=== PATIENT | female | born 1985 ===

== ENCOUNTER 2018-03-03 10:04 | Emergency (ER) | payer OTHER ==
[2018-03-03 10:18] VITALS: TEMP 98.4; O2SAT 99
[2018-03-03] MEDS ORDERED: Sodium Chloride 0.9% 1,000 ML IV ONE (10:31)
[2018-03-03] MEDS ORDERED: Sodium Chloride 0.9% 1,000 ML ONE (10:58)
[2018-03-03 11:02] LABS: BASO # 0.1 K/uL (0.0-0.2); BASO % 0.8 % (0.0-2.0); EOS # 0.2 K/uL (0.0-0.7); EOS % 2.4 % (0.0-4.0); HEMOGLOBIN 13.8 g/dL (11.0-16.0); LYMPH # 1.7 K/uL (1.0-4.3); LYMPH % 23.1 % (20.0-40.0); MEAN CELL VOLUME 86.3 fL (81.0-99.0); MEAN CORPUSCULAR HEMOGLOBIN 30.5 pg (27.0-31.0); MEAN CORPUSCULAR HGB CONC 35.4 g/dL (33.0-37.0); MEAN PLATELET VOLUME 6.9 fL (7.2-11.7); MONO # 0.6 K/uL (0.0-0.8); MONO % 8.2 % (0.0-10.0); NEUT # 4.8 K/uL (1.8-7.0); NEUT % 65.5 % (50.0-75.0); NRBC % 0.1 % (0.0-2.0); RBC 4.52 Mil/uL (3.80-5.20); RED CELL DISTRIBUTION WIDTH 12.9 % (11.5-14.5); WHITE BLOOD COUNT 7.4 K/uL (4.8-10.8)
[2018-03-03 11:08] LABS: HCG,QUALITATIVE URINE POSITIVE (NEGATIVE)
[2018-03-03 11:16] LABS: BLOOD UREA NITROGEN 10 mg/dL (7-17); CALCIUM 9.2 mg/dl (8.6-10.4); GFR NON-AFRICAN AMERICAN > 60
[2018-03-03 11:28] LABS: SQUAMOUS EPITHIAL 5 /hpf (0-5); URINE BACTERIA RARE (<OCC); URINE BILIRUBIN NEGATIVE (NEGATIVE); URINE BLOOD NEGATIVE (NEGATIVE); URINE CLARITY Hazy (Clear); URINE COLOR Amber (YELLOW); URINE GLUCOSE (UA) NORMAL (Normal); URINE LEUKOCYTE ESTERASE TRACE Leu/uL (Negative); URINE PROTEIN 1+ mg/dL (NEGATIVE)
--- NOTE | 2018-03-03 11:35 | C.PDOC ---
History Of Present Illness 33 yo female , LNMP 12/29/17 , no hx of ectopic, comes in for evaluation of epigastric pain, nausea, non-bilious vomiting, decrease appetite developed for past 2 weeks, Pt sts, today developed Right groin pain. Otherwise, pt denies fever, chills, recent illness, CP, SOB, dyspnea, palpitation, hematemesis, diarrhea, back pain, UTI sx, vaginal irritation, denies vaginal bleeding. Ambulate to Ed for evaluation, not in any apparent distress. P{t denies current care. Time Seen by Provider: 03/03/18 10:23 Chief Complaint (Nursing): Abdominal Pain History Per: Patient Past Medical History Reviewed: Historical Data, Nursing Documentation, Vital Signs Vital Signs: Last Vital Signs Temp 98.4 F 03/03/18 10:14 Pulse 88 03/03/18 10:14 Resp 20 03/03/18 10:14 BP 113/78 03/03/18 10:14 Pulse Ox 99 03/03/18 10:14 - Medical History PMH: No Chronic Diseases Family History: States: No Known Family Hx - Social History Hx Tobacco Use: No Hx Alcohol Use: No Hx Substance Use: No - Immunization History Hx Tetanus Toxoid Vaccination: No Hx Influenza Vaccination: No Hx Pneumococcal Vaccination: No Review Of Systems Except As Marked, All Systems Reviewed And Found Negative. Constitutional: Negative for: Fever, Chills ENT: Negative for: Throat Pain Cardiovascular: Negative for: Chest Pain, Palpitations, Edema, Light Headedness Respiratory: Negative for: Cough, Shortness of Breath, Wheezing Gastrointestinal: Positive for: Nausea, Vomiting, Abdominal Pain. Negative for: Diarrhea, Melena, Hematochezia, Hematemesis, Rectal Pain Genitourinary: Negative for: Dysuria, Frequency, Vaginal Discharge, Vaginal Bleeding Musculoskeletal: Negative for: Back Pain Neurological: Negative for: Altered Mental Status, Headache, Dizziness Physical Exam - Physical Exam Appears: Well, Non-toxic, No Acute Distress Skin: Normal Color, Warm, Dry, No Rash Head: Normacephalic Eye(s): bilateral: PERRL Nose: No Flaring Oral Mucosa: Moist Throat: No Erythema, No Drooling Neck: Supple Cardiovascular: Rhythm Regular, No Murmur, No JVD Respiratory: No Decreased Breath Sounds, No Accessory Muscle Use, No Stridor, No Wheezing Gastrointestinal/Abdominal: Soft, Tenderness (mild epigastric), No Distention, No Guarding, No Rebound Back: No CVA Tenderness Extremity: Normal ROM, No Pedal Edema, No Deformity, No Swelling Neurological/Psych: Oriented x3, Normal Speech ED Course And Treatment - Laboratory Results Result Diagrams: 03/03/18 10:55 03/03/18 10:55 Lab Interpretation: No Acute Changes Urine POC: Positive O2 Sat by Pulse Oximetry: 99 Pulse Ox Interpretation: Normal - CT Scan/US Obstetrics US Other Rad Studies (CT/US): Read By Radiologist, Radiology Report Reviewed CT/US Interpretation: Indication: abd. pain, N/V. Comparison: None available. Technique: Real-time transabdominal pelvic ultrasound was performed. In addition a transvaginal pelvic ultrasound was necessary to better depict pelvic anatomy. Findings: Uterus measures approximately 10.7 x 6.5 x 7.7 cm. Anteverted. Cervix length measures approximately 3.3 cm. There is a single intrauterine fetus present. 2 mm yolk sac. The gestational sac measures 3.4 cm and is compatible with a gestational age of 8 weeks 3 days. The crown-rump length measures 2.0 cm and is compatible with a gestational age of 8 weeks 4 days. There is heart motion which measured 119.5 BPM. The right ovary measures 2.1 x 1.3 x 2.1 cm. The left ovary measures 2.6 x 1.5 x 3.0 cm and contains 2.3 x 1.9 x 1.8 cm probable corpus luteal cyst. Blood flow was demonstrated to both ovaries. Impression: Live single intrauterine with estimated gestational age 8 weeks 3 days by gestational sac calculation and 8 weeks 4 days by crown-rump length calculation. heart rate 119.5 bpm. 2.3 cm probable left corpus luteal cyst. Advise an anomaly screen at 16-18 weeks gestational age Progress Note: PT WAS OBS IN ED FOR 3 HOURS AND REMAINED STABLE. Pt reports, " feels better". Pt was able tolerate Po well in ED. On re-evaluation, pt is asymptomatic, afebrile, hemodynamicaly stable. Non-toxic. neck: Supple, (-) JVD. Lungs: CTA B/L, BS equal B/L. CVS: (+)S1S2, reg. Abd: benign, (-) guarding, (-) rebound, (-) localized tenderness. back: (-) CVA tenderness. Blood work review and appears normal. US results (+) Live single intrauterine with estimated gestational age 8 weeks 3 days by gestational sac calculation and 8 weeks 4 days by crown-rump length calculation. heart rate 119.5 bpm. Beta quant review and c/w US findings. Blood type: O positive. results review and discussed with patient. Pt has clinical findings c/w epigastric pain, vomiting, . Ref. to F/u with OB in 2-3 days for re- evaluation. return if any new changes. Disposition Counseled Patient/Family Regarding: Diagnosis, Need For Followup, Rx Given - [facility]position [facility] Disposition: HOME/ ROUTINE Disposition Time: 12:36 Condition: STABLE Additional Instructions: Encourage fluids take medication as need Follow up with OB in 2-3 days for re-evaluation. return if any new changes. Prescriptions: Ondansetron ODT [Zofran ODT] 1 odt PO BID PRN #6 odt PRN Reason: Nausea/Vomiting Instructions: Threatened Miscarriage (DC) Forms: [employer] (Telugu) Print Language: FRENCH - Clinical Impression Clinical Impression: Threatened
--- NOTE | 2018-03-03 12:39 | US ---
Indication: abd. pain, N/V Comparison: None available Technique: Real-time transabdominal pelvic ultrasound was performed. In addition a transvaginal pelvic ultrasound was necessary to better depict pelvic anatomy. Findings: Uterus measures approximately 10.7 x 6.5 x 7.7 cm. Anteverted. Cervix length measures approximately 3.3 cm. There is a single intrauterine fetus present. 2 mm yolk sac. The gestational sac measures 3.4 cm and is compatible with a gestational age of 8 weeks 3 days. The crown-rump length measures 2.0 cm and is compatible with a gestational age of 8 weeks 4 days. There is heart motion which measured 119.5 BPM. The right ovary measures 2.1 x 1.3 x 2.1 cm. The left ovary measures 2.6 x 1.5 x 3.0 cm and contains 2.3 x 1.9 x 1.8 cm probable corpus luteal cyst. Blood flow was demonstrated to both ovaries. Impression: Live single intrauterine with estimated gestational age 8 weeks 3 days by gestational sac calculation and 8 weeks 4 days by crown-rump length calculation. heart rate 119.5 bpm. 2.3 cm probable left corpus luteal cyst. Advise an anomaly screen at 16-18 weeks gestational age
[2018-03-03 13:38] VITALS: BP 98/51; PULSE 69; RESP 18
== END 2018-03-03 13:41 | disposition home or self-care (01) ==
LOC: C.ER 10:04
DX: O20.0 Threatened abortion (principal); Z3A.08 8 weeks gestation of pregnancy
CPT/HCPCS: 76805; 76817; 80048; 81001; 84702; 84703; 85025; 86850; 86900; 87086; 96361; 96374; 99285; J2405; J7030

== ENCOUNTER 2018-03-16 18:57 | Emergency (ER) | payer SELFPAY ==
--- NOTE | 2018-03-16 20:08 | C.PDOC ---
History Of Present Illness 33 y/o female presents to the ED complaining of abdominal pain, nausea, vomiting for 2 months, worse over the last few days. Of note patient is approximately 3 months . She denies any fevers, chills, vaginal bleeding, diarrhea, . She admits to decreased PO intake for last 2 days. Patient was seen here on 03/03, had ultrasound showing live IUP at gestational age of ~8 weeks and 3 days. Time Seen by Provider: 03/16/18 20:07 Chief Complaint (Nursing): Abdominal Pain History Per: Patient History/Exam Limitations: no limitations Onset/Duration Of Symptoms: Days Current Symptoms Are (Timing): Worse Severity: Moderate Pain Scale Rating Of: 4 Location Of Pain/Discomfort: Diffuse Radiation Of Pain To:: None Quality Of Discomfort: "Pain" Associated Symptoms: Nausea, Vomiting Alleviating Factors: None Last Bowel Movement: Today Recent travel outside of the [place]: No Additional History Per: Family Abnormal Vaginal Bleeding: No Past Medical History Reviewed: Historical Data, Nursing Documentation, Vital Signs Vital Signs: Last Vital Signs Temp 97.6 F 03/16/18 19:02 Pulse 92 H 03/16/18 19:02 Resp 20 03/16/18 19:02 BP 115/78 03/16/18 19:02 Pulse Ox 99 03/16/18 19:02 Other Surgeries: Uterine surgery Family History: States: No Known Family Hx - Social History Hx Tobacco Use: No Hx Alcohol Use: No Hx Substance Use: No - Immunization History Hx Tetanus Toxoid Vaccination: No Hx Influenza Vaccination: No Hx Pneumococcal Vaccination: No Review Of Systems Constitutional: Negative for: Fever, Chills Gastrointestinal: Positive for: Nausea, Vomiting, Abdominal Pain. Negative for: Diarrhea Genitourinary: Negative for: Dysuria, Frequency, Vaginal Discharge, Vaginal Bleeding Neurological: Negative for: Weakness, Numbness Psych: Negative for: Anxiety Physical Exam - Physical Exam Appears: Non-toxic, No Acute Distress Skin: Warm, Dry Oral Mucosa: Moist Neck: Trachea Midline, Supple Chest: Symmetrical Cardiovascular: Rhythm Regular Respiratory: No Rales, No Rhonchi, No Wheezing Gastrointestinal/Abdominal: Soft, Tenderness (mild diffuse tenderness), Distention (mild), No Guarding, No Rebound Back: No CVA Tenderness Extremity: Normal ROM Extremity: Bilateral: Normal Color And Temperature Pulses: Left Dorsalis Pedis: Normal, Right Dorsalis Pedis: Normal Neurological/Psych: Oriented x3 Gait: Steady ED Course And Treatment - Laboratory Results Result Diagrams: 03/16/18 20:27 03/16/18 20:27 O2 Sat by Pulse Oximetry: 99 (on RA) Pulse Ox Interpretation: Normal - CT Scan/US OB transvaginal US Other Rad Studies (CT/US): Read By Radiologist, Radiology Report Reviewed CT/US Interpretation: Name:CECILIO CAMPOS Exam Date:Mar 16, 2018 8:30:07 PM EST. Modality Type:SD\\US\\WA\\SR. Description:US - OB 1ST TRIMESTER. Gender:F Laterality:Not applicable. :87 Referring Physician:Yasmin Mahmood). History. Pelvic pain. Comparison. None available. Findings. Uterus. Single Live intrauterine gestation. CRL equivalent to 10 wks/4 days gestation. Gestational sac diameter equivalent to 9 wks/4 days gestation. age (Ultrasound estimated): 10 weeks 0 days. Date of delivery (Ultrasound estimated) : 10/12/2018. Heart rate: 148 bpm. [place]-gestational hemorrhage: None. Uterus measures 11.3 x 7.7 x 8.2 cm. No mass. Cervix. Long and closed measuring 4.1 cm. No cervical abnormality seen. Right Ovary. Measures 2.5 x 1.4 x 2.4 cm. No mass. Normal flow. Left Ovary. Measures 2.7 x 1.6 x 2.5 cm. No mass. Normal flow. Corpus luteal cyst. Free Fluid. None. Other Findings. None. Impression. 1. Single live intrauterine gestation with age of 10 weeks 0 days. 2. Left ovarian corpus luteal cyst. Progress Note: Blood work and urine sent to the lab. Administered IV fluids, Zofran. Awaiting US results. Labs and imaging reviewed, results discussed with patient. Given intial dose of Macrobid PO in the ED. Reevaluation Time: 22:00 Reassessment Condition: Improved Disposition Counseled Patient/Family Regarding: Studies Performed, Diagnosis, Need For Followup, Rx Given - Disposition Referrals: [facility] [Outside] Pending [facility] To [facility] [Outside] Disposition: HOME/ ROUTINE Disposition Time: 20:07 Condition: FAIR Additional Instructions: Please return if symptoms recur Prescriptions: Nitrofurantoin Macrocrystals [Macrobid] 100 mg PO BID #14 cap Ondansetron ODT [Zofran ODT] 1 odt PO BID PRN #6 odt PRN Reason: Nausea/Vomiting Instructions: Threatened Miscarriage (DC), Urinary Tract Infection, Adult (DC) Forms: [employer] (Tajik) Print Language: AFGHAN - Clinical Impression Clinical Impression: Abdominal pain, Threatened , UTI (urinary tract infection) during - Scribe Statement The provider has reviewed the documentation as recorded by the Scribe (Farida Carpenter) Provider Attestation: All medical record entries made by the Scribe were at my direction and personally dictated by me. I have reviewed the chart and agree that the record accurately reflects my personal performance of the history, physical exam, medical decision making, and the department course for this patient. I have also personally directed, reviewed, and agree with the discharge instructions and disposition.
[2018-03-16] MEDS ORDERED: Sodium Chloride 0.9% 1,000 ML IV ONE (20:09)
[2018-03-16] MEDS ORDERED: Sodium Chloride 0.9% 1,000 ML ONE (20:23)
[2018-03-16 20:34] LABS: BASO # 0.1 K/uL (0.0-0.2); BASO % 0.6 % (0.0-2.0); EOS # 0.4 K/uL (0.0-0.7); EOS % 4.8 % (0.0-4.0); HEMOGLOBIN 14.4 g/dL (11.0-16.0); LYMPH # 2.5 K/uL (1.0-4.3); LYMPH % 26.8 % (20.0-40.0); MEAN CELL VOLUME 86.3 fL (81.0-99.0); MEAN CORPUSCULAR HEMOGLOBIN 30.3 pg (27.0-31.0); MEAN CORPUSCULAR HGB CONC 35.1 g/dL (33.0-37.0); MEAN PLATELET VOLUME 7.4 fL (7.2-11.7); MONO # 0.7 K/uL (0.0-0.8); MONO % 7.6 % (0.0-10.0); NEUT # 5.6 K/uL (1.8-7.0); NEUT % 60.2 % (50.0-75.0); RBC 4.73 Mil/uL (3.80-5.20); RED CELL DISTRIBUTION WIDTH 13.1 % (11.5-14.5); WHITE BLOOD COUNT 9.3 K/uL (4.8-10.8)
[2018-03-16 20:39] LABS: PROTHROMBIN TIME 11.4 SECONDS (9.7-12.2)
[2018-03-16 20:44] LABS: SQUAMOUS EPITHIAL 6 /hpf (0-5); URINE BACTERIA MOD (<OCC); URINE BILIRUBIN NEGATIVE (NEGATIVE); URINE BLOOD NEGATIVE (NEGATIVE); URINE CALCIUM OXALATE CRYSTALS MOD /hpf (<OCC); URINE CLARITY Clear (Clear); URINE COLOR Amber (YELLOW); URINE GLUCOSE (UA) NORMAL (Normal); URINE LEUKOCYTE ESTERASE NEG Leu/uL (Negative); URINE PROTEIN 1+ mg/dL (NEGATIVE)
[2018-03-16 20:48] LABS: ALB/GLOB RATIO 1.3 (1.0-2.1); ALBUMIN 4.3 g/dL (3.5-5.0); ALT/SGPT 30 U/L (9-52); AST/SGOT 25 U/L (14-36); BLOOD UREA NITROGEN 7 mg/dL (7-17); GFR NON-AFRICAN AMERICAN > 60
[2018-03-16 21:37] VITALS: BP 97/59; PULSE 65; RESP 13; TEMP 98.4
[2018-03-16 21:45] VITALS: O2SAT 99
--- NOTE | 2018-03-17 10:03 | US ---
Date of service: 03/16/2018 PROCEDURE: OB Pelvic Ultrasound HISTORY: pain LMP 01/08/2018 COMPARISON: None available. FINDINGS: UTERUS: Gestational sac: Single live intrauterine gestation identified. Gestational sac diameter is 42 mm, equivalent to 9 weeks 4 days. [place]-rump length 36 mm equivalent to 10 weeks 4 days. Heart rate: 148 bpm. age (Ultrasound estimated): 10 weeks 1 day [place]-gestational hemorrhage: None. Date of delivery (Ultrasound estimated) : 10/11/2018 5 mm yolk sac visualized. Uterus measures 11.3 x 7.7 x 8.2 cm. Normal in size and appearance. CERVIX: Measures 4.1 cm. Long and closed. No cervical abnormality seen. RIGHT OVARY: Measures 2.5 x 1.4 x 2.4 cm. No mass lesion. Normal flow. LEFT OVARY: Measures 2.7 x 1.6 x 2.5 cm. No solid mass. Normal flow. Corpus luteum identified measuring 1.6 cm in diameter. FREE FLUID: None. OTHER FINDINGS: None. IMPRESSION: Single live intrauterine gestation of approximately 10 weeks 1 day gestational age. EDMAR 10/11/2018. heart rate 148. Cervix long and closed. No subchorionic hemorrhage. Left ovarian corpus luteum. The preliminary findings for this examination were reported by [facility] at 9:38 p.m. on 03/16/2018. There is concurrence of this report with the preliminary findings.
== END 2018-03-16 22:17 | disposition home or self-care (01) ==
LOC: C.ER 18:57
DX: O23.41 Unspecified infection of urinary tract in pregnancy, first trimester (principal); O20.0 Threatened abortion; Z3A.10 10 weeks gestation of pregnancy
CPT/HCPCS: 76817; 80053; 81001; 84702; 85025; 85610; 85730; 86850; 86900; 96361; 96374; 99283; J2405; J7030

== ENCOUNTER 2018-04-24 10:05 | Outpatient (CLI) | payer OTHER | END 2018-04-24 10:06 | disposition home or self-care (01) | LOC: C.LAB 10:05 | DX: Z34.80 Encounter for supervision of other normal pregnancy, unspecified trimester (principal) ==

== ENCOUNTER 2018-05-29 11:42 | Outpatient (CLI) | payer OTHER | END 2018-05-29 11:43 | disposition home or self-care (01) | LOC: C.LAB 11:42 ==

== ENCOUNTER 2018-06-05 20:26 | Emergency (ER) | payer OTHER ==
[2018-06-05 21:05] VITALS: BMI 32.4
[2018-06-05] MEDS ORDERED: Lactated Ringer's 1,000 ML IV SCH (21:15)
[2018-06-05 21:40] LABS: BASO % 0.3 % (0.0-2.0); EOS # 0.6 K/uL (0.0-0.7); EOS % 5.3 % (0.0-4.0); HEMOGLOBIN 11.6 g/dL (11.0-16.0); LYMPH # 2.1 K/uL (1.0-4.3); LYMPH % 17.7 % (20.0-40.0); MEAN CORPUSCULAR HGB CONC 32.9 g/dL (33.0-37.0); MEAN PLATELET VOLUME 6.7 fL (7.2-11.7); MONO # 0.8 K/uL (0.0-0.8); MONO % 6.7 % (0.0-10.0); NEUT # 8.2 K/uL (1.8-7.0); NRBC % 0.1 % (0.0-2.0); RBC 3.88 Mil/uL (3.80-5.20); RED CELL DISTRIBUTION WIDTH 13.2 % (11.5-14.5); WHITE BLOOD COUNT 11.7 K/uL (4.8-10.8)
[2018-06-05 21:54] LABS: ALB/GLOB RATIO 1.3 (1.0-2.1); ALBUMIN 3.7 g/dL (3.5-5.0); ALT/SGPT 25 U/L (9-52); AST/SGOT 18 U/L (14-36); BLOOD UREA NITROGEN 8 mg/dL (7-17); CALCIUM 9.7 mg/dl (8.6-10.4); GFR NON-AFRICAN AMERICAN > 60
[2018-06-05 22:00] LABS: SQUAMOUS EPITHIAL 7 /hpf (0-5); URINE AMORPHOUS SEDIMENT RARE /ul (<OCC); URINE BACTERIA FEW (<OCC); URINE BILIRUBIN NEGATIVE (NEGATIVE); URINE BLOOD 2+ (NEGATIVE); URINE CALCIUM OXALATE CRYSTALS FEW /hpf (<OCC); URINE CLARITY Hazy (Clear); URINE COLOR Yellow (YELLOW); URINE GLUCOSE (UA) NORMAL (Normal); URINE LEUKOCYTE ESTERASE 1+ Leu/uL (Negative); URINE PROTEIN 1+ mg/dL (NEGATIVE); URINE UROBILINOGEN NORMAL mg/dL (0.2-1.0)
[2018-06-05] MEDS ORDERED: ceFAZolin 2 MG in Sodium Chloride 0.9% 100 ML IVPB ONE (23:45)
[2018-06-05] MEDS ORDERED: Nalbuphine HCL 10 mg/ml Ampule IVP ONE (23:51)
--- NOTE | 2018-06-06 08:51 | US ---
Indication: Renal stones, patient 21 weeks . Technique: Sonographic images of the kidneys and urinary bladder. Comparison: None available Findings: The right kidney measures approximately 10.6 x 4.8 x 5.2 cm. 5 mm right upper pole calculus appears nonobstructing. Mild hydronephrosis. The left kidney measures approximately 11 x 5.1 x 4.2 cm. No evidence of hydronephrosis or obstructing calculus. Prevoid urinary bladder: 92.7 mL Postvoid urinary bladder: 67.9 mL The right ureteral jet is not identified. The left ureteral jet is seen. No evidence of urinary bladder wall thickening. No evidence of urinary bladder calculi. No significant pelvic free fluid identified. Partially imaged gravid uterus; please note fetus cannot be assessed on this study. Partially imaged contracted gallbladder reveals evidence of gallstones. Impression: Partially imaged contracted gallbladder reveals evidence of gallstones. Suggest right upper quadrant ultrasound if indicated. Evidence of 5 mm nonobstructing right upper pole calculus. Mild right sided hydronephrosis. Correlate clinically. No evidence of hydronephrosis or obstructing calculus of the left kidney. Prevoid urinary bladder: 92.7 mL Postvoid urinary bladder: 67.9 mL The right ureteral jet is not identified. The left ureteral jet is seen. Preliminary impression was provided by [employer]. Findings discussed with Dr. Croft on 06/06/17 at 8:44 a.m..
[2018-06-06] MEDS ORDERED: ceFAZolin 1 gm in NS 1 GM/100 ML BAG IVPB ONE (09:00)
--- NOTE | 2018-06-06 09:23 | US ---
Indication: R/O labor, Needs cervical length Comparison: Ob transvaginal ultrasound performed 03/16/18 Technique: Real-time ultrasound was performed through the pelvis. Findings: There is a single living fetus in cephalic presentation. Anterior fundal placenta. The placenta is not previa. There are no adnexal masses or cysts evident. Cervical length measures approximately 4.0 cm. Small fluid noted at the level of the endocervix. The study was performed for emergent evaluation, and the whole anatomic survey of the fetus was not performed. This should be performed on an outpatient elective basis as clinically warranted. Measurements and calculations: Fetus has a composite sonographic age of 21 weeks 5 days. This calculation is based on the biparietal diameter, head circumference, abdominal circumference, and femur length. Estimated heart rate 132 beats per min. Estimated weight 470.7 g. Impression: Single living fetus with a composite sonographic age of 21 weeks 5 days. Estimated heart rate 132 beats per min. Additional findings as above. Preliminary impression was provided by [employer].
[2018-06-06 15:01] VITALS: BP 101/57; PULSE 86; TEMP 98.4
== END 2018-06-06 10:50 | disposition home or self-care (01) ==
LOC: C.EROB 20:26
DX: O26.892 Other specified pregnancy related conditions, second trimester (principal); Z3A.21 21 weeks gestation of pregnancy; R10.31 Right lower quadrant pain
CPT/HCPCS: 76770; 76810; 76815; 80053; 81001; 85025; 86850; 86900; 87086; 99283; J0690; J7120